=== PATIENT | female | born 1955 | race Caucasian/White ===

== ENCOUNTER → 2017-10-02 | Outpatient (CLI) | payer OTHER | LOC: M RAD 09:21 | DX: Z12.31 Encounter for screening mammogram for malignant neoplasm of breast (principal) | CPT/HCPCS: 77067 ==

== ENCOUNTER 2019-07-14 15:02 | Emergency (ER) | payer OTHER ==
[~2019-07-14] VITALS: Ht 172.7 cm; Wt 95.5 kg
[2019-07-14] MEDS ORDERED: OXYC1TAB23 PO (18:32)
[2019-07-14] MEDS ORDERED: VITA200028 PO (18:32)
[2019-07-14] MEDS ORDERED: MULTCAP PO (18:32)
[2019-07-14] MEDS ORDERED: AMIT50TA PO (18:32)
[2019-07-14] MEDS ORDERED: ROBA750T4 PO (18:32)
[2019-07-14] MEDS ORDERED: IBUPROFEN 800 MG TAB PO ONE (19:00)
[2019-07-14 19:25] LABS: HEMATOCRIT 38.6 % (36.0-47.0); HEMOGLOBIN 12.5 g/dl (12.0-15.5); MEAN CORPUSCULAR HEMOGLOBIN 31.7 pg (27.0-33.0); MEAN CORPUSCULAR HGB CONC 32.4 g/dl (32.0-36.5); RED BLOOD COUNT 3.94 10^6/uL (4.00-5.40); WHITE BLOOD COUNT 4.9 10^3/uL (4.0-10.0)
[2019-07-14 19:50] LABS: INFLUENZA A AMPLIFICATION NEGATIVE (NEGATIVE); INFLUENZA B AMPLIFICATION NEGATIVE (NEGATIVE)
[2019-07-14 19:55] LABS: PLATELET COUNT, AUTOMATED 79 10^3/uL (150-450)
[2019-07-14 20:05] LABS: ATYPICAL LYMPH 11 % (0-5); LYMPHOCYTES 55 % (16-44); MONOCYTES 3 % (0-5); NEUTROPHILS 31 % (28-66)
[2019-07-14 20:06] LABS: PLATELET ESTIMATE DECREASED (NORMAL)
--- NOTE | 2019-07-14 20:49 | REPVR ---
PROCEDURE INFORMATION: Exam: CT Chest Without Contrast Exam date and time: 07/14/2019 7:50 PM Age: 64 years old Clinical history: Other: Maciej hilar adenopathy seen xray TECHNIQUE: Imaging protocol: Computed tomography of the chest without contrast. 3D rendering: MIP reconstructed images were created and reviewed. Radiation optimization: All CT scans at this facility use at least one of these dose optimization techniques: automated exposure control; mA and/or kV adjustment per patient size (includes targeted exams where dose is matched to clinical indication); or iterative reconstruction. COMPARISON: CR Chest, 2 view PA, Lat 07/14/2019 7:03 PM FINDINGS: Lungs: There are no focal ranges of lung consolidation or nodules. Pleural space: No pleural effusions. Heart: No cardiomegaly or significant pericardial effusion. Aorta: No aneurysmal dilatation of thoracic aorta. Atherosclerosis is apparent. Lymph nodes: There are calcified mediastinal and right hilar lymph nodes likely due to old granulomatous disease. Gallbladder and bile ducts: Cholelithiasis. Spleen: The spleen appears enlarged measuring 15.3 cm. Bones/joints: There is a mild wedge compression fracture of a mid to upper thoracic vertebra primarily involving the superior endplate. There is also in end plate compression fracture in the mid to lower thoracic spine versus large Schmorl's node. Soft tissues: Unremarkable. IMPRESSION: 1. Calcified lymph nodes are seen in the posterior mediastinum and right hilum likely due to old granulomatous disease which likely accounts for the enlargement of the right hilum seen on today's chest x-ray. The elba however are not well assessed on a noncontrast study. 2. Cholelithiasis. 3. Probable splenomegaly. Electronically signed by: Bozena Brennan On 07/14/2019 20:48:51 PM
--- NOTE | 2019-07-14 21:10 | REP ---
CHEST, TWO VIEWS: There is no evidence of acute infiltrate. No pleural effusion is seen. The heart is normal in size. The mediastinal silhouette is unremarkable. The visualized osseous structures are intact. IMPRESSION: No acute pulmonary disease. Electronically Signed by Marino Chery MD 07/15/2019 03:44 P
[2019-07-14 21:31] LABS: ALBUMIN 3.1 GM/DL (3.2-5.2); ALT/SGPT 56 U/L (12-78); BILIRUBIN,DIRECT 0.3 MG/DL (0.0-0.2); BILIRUBIN,TOTAL 0.7 MG/DL (0.2-1.0); LIPASE 52 U/L (73-393); TOTAL PROTEIN 7.3 GM/DL (6.4-8.2)
[2019-07-14 21:43] LABS: MONO REFLEX EBV COMP NEGATIVE (NEGATIVE)
[2019-07-14 21:56] VITALS: BP 133/60
--- NOTE | 2019-07-15 14:05 | ED PDOC ---
Post-Departure Follow-Up [facility] and [facility] foster faxed formal report of ct chest for fu Delvis Frazier MD Jul 15, 2019 14:05
[2019-07-17 00:08] LABS: EBV AB TO NUCLEAR ANTIGEN <18.0 U/mL (0.0-17.9); EBV VIRAL CAPSID AG IgM 64.9 U/mL (0.0-35.9)
== END 2019-07-14 21:58 | disposition home or self-care (01) ==
LOC: M ED 15:02
DX: D69.3 Immune thrombocytopenic purpura (principal); M79.10 Myalgia, unspecified site; R16.1 Splenomegaly, not elsewhere classified; S22.000A Wedge compression fracture of unspecified thoracic vertebra, initial encounter for closed fracture; X58.XXXA Exposure to other specified factors, initial encounter; R59.9 Enlarged lymph nodes, unspecified; K80.80 Other cholelithiasis without obstruction; F41.9 Anxiety disorder, unspecified; G89.29 Other chronic pain; M54.5 Low back pain; Z79.891 Long term (current) use of opiate analgesic; Z79.899 Other long term (current) drug therapy

== ENCOUNTER → 2019-10-05 | Outpatient (CLI) | payer OTHER ==
[~2019-10-05] MED LIST: AMIT50TA PO; MULTCAP PO; OXYC1TAB23 PO; ROBA750T4 PO; VITA200028 PO
--- NOTE | 2019-10-05 15:29 | REPMRS ---
Patient History The patient states she has not had a clinical breast exam in over a year. Benign radio exam breast specimen of the left breast, July 26, 2014. Benign stereotatic loc for ea lesion of the left breast, July 26, 2014. Digital Woman Screen Mammo: October 05, 2019 - Exam #: [id number] Bilateral CC and MLO view(s) were taken. Technologist: Mercy Lambert, Technologist Prior study comparison: October 02, 2017, bilateral digital mammo screening bilat, performed at [facility]. October 07, 2015, digital mammo diagnostic bilateral, performed at [facility]. FINDINGS: There are scattered fibroglandular densities. The needle biopsy marker clip is again noted in the left breast adjacent is some stable calcifications. There has been no change in the appearance of the mammogram from the prior studies. There is a mild amount of scattered fibroglandular density which is fairly symmetric. There is no interval development of dominant mass, architectural distortion, or grouped microcalcification suggestive of malignancy. 3-D tomosynthesis shows no additional findings. Assessment: BI-RADS/ACR category 2 mammogram. Benign Findings. Recommendation Routine screening mammogram of both breasts in 1 year (for women over age 40). This patient's Lifetime Breast Cancer Risk is estimated at 6.9 %. This mammogram was interpreted with the aid of an FDA-approved computer-aided dectection system. Electronically Signed By: Dillan Acosta MD 10/05/19 [id number]
== END ==
LOC: M WHC 12:56
PROVIDERS: ATTEND Family Medicine
DX: Z12.31 Encounter for screening mammogram for malignant neoplasm of breast (principal)

== ENCOUNTER → 2021-11-22 | Outpatient (CLI) | payer OTHER | LOC: M WHC 16:25 | PROVIDERS: ATTEND Family Medicine | DX: Z12.31 Encounter for screening mammogram for malignant neoplasm of breast (principal) ==

== ENCOUNTER → 2022-06-29 | Outpatient (CLI) | payer OTHER | LOC: M SOG 09:22 | PROVIDERS: ATTEND Orthopaedic Surgery | DX: M79.671 Pain in right foot (principal) ==

== ENCOUNTER → 2022-07-27 | Outpatient (CLI) | payer OTHER | LOC: M SOG 08:11 | PROVIDERS: ATTEND Orthopaedic Surgery | DX: S92.351D Displaced fracture of fifth metatarsal bone, right foot, subsequent encounter for fracture with routine healing (principal) ==

== ENCOUNTER → 2022-09-03 | Outpatient (CLI) | payer OTHER | LOC: M SOG 08:07 | PROVIDERS: ATTEND Orthopaedic Surgery | DX: S92.351D Displaced fracture of fifth metatarsal bone, right foot, subsequent encounter for fracture with routine healing (principal) ==

== ENCOUNTER → 2022-10-16 | Outpatient (CLI) | payer OTHER | LOC: M SOG 08:24 | PROVIDERS: ATTEND Orthopaedic Surgery | DX: S92.351D Displaced fracture of fifth metatarsal bone, right foot, subsequent encounter for fracture with routine healing (principal) ==

== ENCOUNTER → 2023-03-04 | Outpatient (CLI) | payer OTHER | LOC: M WHC 10:03 | PROVIDERS: ATTEND Nurse Practitioner Family | DX: Z12.31 Encounter for screening mammogram for malignant neoplasm of breast (principal) ==

== ENCOUNTER → 2024-03-25 | Outpatient (CLI) | payer OTHER | LOC: M WHC 13:34 | PROVIDERS: ATTEND Nurse Practitioner Family | DX: Z12.31 Encounter for screening mammogram for malignant neoplasm of breast (principal) ==

== ENCOUNTER → 2025-04-29 | Outpatient (CLI) | payer OTHER | LOC: M WHC 13:31 | PROVIDERS: ATTEND Registered Nurse | DX: Z12.31 Encounter for screening mammogram for malignant neoplasm of breast (principal); R92.313 Mammographic fatty tissue density, bilateral breasts ==